=== PATIENT | female | born 1960 | race Caucasian/White ===

== ENCOUNTER 2018-07-11 14:17 | Emergency (ER) | payer BC ==
[~2018-07-11] VITALS: Ht 172.7 cm; Wt 86.2 kg
[2018-07-11 14:20] VITALS: BP 144/80
--- NOTE | 2018-07-11 14:23 | NUR ---
PT TAKEN IN WHEELCHAIR TO ER BED 06
--- NOTE | 2018-07-11 14:28 | NUR ---
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 SWELLING, BLUISH SKIN DISCOLORATION NOTED ON LEFT ANKLE. NO SKIN TEAR OR INJURY NOTED. PT HAS TINGLING SENSATION ON HER LEFT FINGERS. DENIES LOC AFTER FALL. HAS HX OF HTN, ANXIETY AND OSTEOPOROSIS. DENIES N/V/D; SKIN IS PINK/WARM/DRY; AAOX4. PT DENIES ANY FEVER, CP, SOB, OR COUGH AT THIS TIME; PATIENT STATES PAIN OF 10/10 AT THIS TIME; VSS; PATIENT POSITIONED FOR COMFORT; HOB ELEVATED; BEDRAILS UP X2; BED DOWN. ER MD MADE AWARE OF PT STATUS.
[2018-07-11] MEDS ORDERED: ONDANSETRON 4 MG ODT PO ONE (15:25)
[2018-07-11] MEDS ORDERED: HYDROcodone/APAP 5/325 MG 1 TAB TAB PO ONE (15:25)
[2018-07-11 15:50] VITALS: BP 134/78
--- NOTE | 2018-07-11 15:50 | NUR ---
Patient discharged with v/s stable. Written and verbal after care instructions given and explained. Patient alert, oriented and verbalized understanding of instructions. Wheel Chair Assisted with to car. All questions addressed prior to discharge. ID band removed. Patient advised to follow up with PMD. Rx of NORCO given. Patient educated on indication of medication including possible reaction and side effects. Opportunity to ask questions provided and answered.
== END 2018-07-11 15:50 | disposition home or self-care (01) ==
LOC: MED 14:17
DX: S82.832A Other fracture of upper and lower end of left fibula, initial encounter for closed fracture (principal); X58.XXXA Exposure to other specified factors, initial encounter; Y93.89 Activity, other specified; Y92.89 Other specified places as the place of occurrence of the external cause; Y99.8 Other external cause status
CPT/HCPCS: 29515; 73610; 99283; Q0162